=== PATIENT | male | born 1965 | race Caucasian/White ===

== ENCOUNTER 2021-10-16 15:35 | Emergency (ER) | payer OTHER ==
[2021-10-16] MEDS ORDERED: Dextrose 5% in Water 500 ML ONE (16:39)
[2021-10-16] MEDS ORDERED: Lactated Ringer's 1,000 ML ONE (16:39)
[2021-10-16] MEDS ORDERED: Sodium Chloride 0.9% 100 ML ONE (16:39)
[2021-10-16] MEDS ORDERED: Verapamil 5 MG/2 ML VIAL ONE (16:39)
[2021-10-16] MEDS ORDERED: Clindamycin/D5W 900 mg/50 ml Premix Bag ONE (16:40)
[2021-10-16] MEDS ORDERED: Cefepime 2 GM VIAL ONE (16:40)
[2021-10-16 16:59] LABS: INR-International Normal Ratio 1.2; PTT 27.5 sec (22.9-36.1); Prothrombin Time 15.6 sec (12.0-14.7)
[2021-10-16 17:07] LABS: CRP (Inflammatory) 15.52 mg/dL (= or < 0.5)
[2021-10-16 17:11] LABS: ALT (SGPT) 26 U/L (8-55); AST (SGOT) 28 U/L (5-34); Albumin 3.7 g/dL (3.5-5.0); Alkaline Phosphatase 94 U/L (40-110); Anion Gap 19 mmol/L (10-20); BUN (Urea Nitrogen) 17 mg/dL (8.4-25.7); Bilirubin, Total 1.2 mg/dL (0.2-1.2); Calc. Creatinine Clearance 0 mL/min (70-130); Calcium 9.1 mg/dL (7.8-10.44); Carbon Dioxide 19 mmol/L (22-29); Chloride 96 mmol/L (98-107); Estimated GFR 71; Globulin 3.7 g/dL (2.4-3.5); Glucose 104 mg/dL (70-105); Potassium 3.4 mmol/L (3.5-5.1); Protein, Total 7.4 g/dL (6.0-8.3); Sodium 131 mmol/L (136-145)
[2021-10-16 17:18] LABS: Band 8 % (5-11); Hemoglobin 14.1 g/dL (14.0-18.0); Lymphocytes 17 % (21-51); MDiff Complete? YES; Mean Corpuscular HGB CONC 33.2 g/dL (32.0-36.0); Mean Corpuscular Hemoglobin 29.9 pg (27.0-31.0); Mean Platelet Volume 9.2 fL (7.4-10.4); Monocytes 6 % (0-10); Neutrophil 69 % (42-75); Platelet Count 292 thou/uL (130-400); Platelet Morphology Comment Appears Adequate; RBC Distribution Width 11.9 % (11.5-14.5); RBC Morphology Normal; Red Blood Cell (RBC) Count 4.73 mill/uL (4.70-6.10); White Blood Cell (WBC) Count 34.5 thou/uL (4.8-10.8)
[2021-10-16] MEDS ORDERED: Potassium Chloride 20 MEQ TAB ONE (18:11)
[2021-10-16 18:57] LABS: SARS-CoV-2 NAA Rapid Test Not Detected (NotDetected)
== END 2021-10-16 19:15 | disposition short-term general hospital (02) ==
LOC: MADERS 15:35 → EDBD 15:35 → MADERS 19:15
DX: S90.822A Blister (nonthermal), left foot, initial encounter (principal); A41.9 Sepsis, unspecified organism; L03.116 Cellulitis of left lower limb; E87.6 Hypokalemia; F17.210 Nicotine dependence, cigarettes, uncomplicated; V68.0XXA Driver of heavy transport vehicle injured in noncollision transport accident in nontraffic accident, initial encounter; Z20.822 Contact with and (suspected) exposure to COVID-19
CPT/HCPCS: 36415; 80053; 82550; 83605; 85025; 85610; 85730; 86140; 87040; 93005; 94760; 96365; 96367; J0692; J3370; J3490; J7070; J7120; U0002